=== PATIENT | male | born 1970 | race Caucasian/White ===

== ENCOUNTER 2023-05-16 19:20 | Emergency (ER) | payer MEDICAID ==
[~2023-05-16] VITALS: Ht 170.2 cm; Wt 88.2 kg
[~2023-05-16 19:20] MED LIST: IBUP-1493 PO
[2023-05-16] MEDS ORDERED: FAMOTIDINE 20 MG/2 ML VIAL IVP ONE (21:15)
[2023-05-16] MEDS ORDERED: MethylPREDNISolone SOD SUCC 125 MG/2 ML VIAL IVP ONE (21:15)
[2023-05-16 21:24] VITALS: TEMP 98.7
[2023-05-16] MEDS ORDERED: SODIUM CHLORIDE 0.9% 1,000 ML IV ONE (22:15)
[2023-05-16 22:40] LABS: ANION GAP 8 mmol/L (8-16); CALCIUM, TOTAL 8.7 mg/dL (8.8-10.5); CARBON DIOXIDE 29 mmol/L (22-29); CHLORIDE 104 mmol/L (98-107); GLOMERULAR FILTR. RATE CALC > 60 mL/min (>60); GLUCOSE,RANDOM 145 mg/dL (70-110); POTASSIUM 3.9 mmol/L (3.5-5.1); SODIUM SERUM 141 mmol/L (136-145); UREA NITROGEN, BLOOD 12 mg/dL (7-18)
[2023-05-16 22:43] LABS: BASOPHILS % (AUTO) 0.2 % (0.0-2.0); EOSINOPHILS % (AUTO) 0.1 % (1.0-6.0); HEMATOCRIT 43.9 % (41-53); HEMOGLOBIN 14.5 g/dL (13.5-17.5); LYMPHOCYTES # (AUTO) 1.1 K/uL (1.0-4.8); LYMPHOCYTES % (AUTO) 8.1 % (22.0-44.0); MEAN CORPUSCULAR HEMOGLOBIN 27.3 pg (26.0-34.0); MEAN CORPUSCULAR HGB CONC 32.9 G/dL (31.0-37.0); MEAN CORPUSCULAR VOLUME 83 fL (80-100); MONOCYTES # (AUTO) 0.9 K/uL (0.1-1.0); MONOCYTES % (AUTO) 6.4 % (2.0-9.0); PLATELET COUNT (AUTO) 278 K/uL (150-450); RED CELL DISTRIBUTION WIDTH 13.8 % (11.5-14.5); WHITE BLOOD COUNT (AUTO) 14.1 K/uL (4.5-11.0)
[2023-05-16 22:46] LABS: ALANINE AMINOTRANSFERASE 31 U/L (12-78); ALBUMIN 3.4 g/dL (3.4-5.0); ALKALINE PHOSPHATASE 59 U/L (46-116); ASPARTATE AMINOTRANSFERASE 13 U/L (15-37); BILIRUBIN,TOTAL 0.3 mg/dL (0.1-1.0); TOTAL PROTEIN, SERUM 6.5 g/dL (6.4-8.2)
[2023-05-16 22:48] LABS: NEUTROPHILS % (AUTO) 85.2 % (40.0-70.0)
[2023-05-17] MEDS ORDERED: PRED-554 PO (01:00)
[2023-05-17] MEDS ORDERED: EPIN0.3P3 IM (01:05)
[2023-05-17 01:10] VITALS: BP 126/76; PULSE 83; RESP 16
== END 2023-05-17 01:07 | disposition home or self-care (01) ==
LOC: EMS 19:21
DX: T78.40XA Allergy, unspecified, initial encounter (principal); E11.9 Type 2 diabetes mellitus without complications; Z98.890 Other specified postprocedural states; X58.XXXA Exposure to other specified factors, initial encounter
CPT/HCPCS: 99284; 96374; 96361; 96375; 80053; 85025; 36415; J3490; J2930; J7030

== ENCOUNTER 2024-10-28 05:17 | Emergency (ER) | payer OTHER ==
[~2024-10-28] VITALS: Ht 165.1 cm; Wt 90.9 kg
[~2024-10-28 05:17] MED LIST changes: +EPIN0.3P3 IM; +PRED-554 PO
[2024-10-28 05:26] VITALS: BP 146/91; PULSE 74; RESP 16; TEMP 98.3; O2SAT 98
[2024-10-28] MEDS: PredniSONE 20 MG TABLET PO ONE (05:51)
[2024-10-28] MEDS ORDERED: EPIN0.3P3 IM (06:17)
[2024-10-28] MEDS ORDERED: METH4TAB3 PO (06:17)
[2024-10-28] MEDS ORDERED: FAMO20 PO (06:17)
[2024-10-28] MEDS ORDERED: DIPH25CA85 PO (06:17)
[2024-10-28] MEDS: DEXAMETHASONE SOD PHOS 4 MG/ML 5 ML VIAL IM ONE (06:22)
[2024-10-28] MEDS: FAMOTIDINE 20 MG TABLET PO ONE (06:22)
== END 2024-10-28 06:47 | disposition home or self-care (01) ==
LOC: EMS 05:17
DX: T78.40XA Allergy, unspecified, initial encounter (principal); E11.9 Type 2 diabetes mellitus without complications; Z79.52 Long term (current) use of systemic steroids; X58.XXXA Exposure to other specified factors, initial encounter
CPT/HCPCS: 99283; 96372; J1100; J7512

== ENCOUNTER 2025-01-19 00:40 | Emergency (ER) | payer OTHER ==
[~2025-01-19] VITALS: Ht 170.2 cm; Wt 90.9 kg
[~2025-01-19 00:40] MED LIST changes: +DIPH25CA85 PO; +FAMO20 PO; +METH4TAB3 PO
[2025-01-19 01:02] VITALS: BP 143/76; PULSE 92; RESP 18; TEMP 98.4; O2SAT 93
[2025-01-19 01:06] LABS: GLUCOMETER DEV NAME(LOC) ER.7; GLUCOSE,POINT OF CARE 268 MG/DL (70-110)
[2025-01-19] MEDS: DiphenhydrAMINE HCL 50 MG/ML VIAL IVP ONE (01:31)
[2025-01-19] MEDS: MethylPREDNISolone SOD SUCC 125 MG/2 ML VIAL IVP ONE (01:32)
[2025-01-19] MEDS ORDERED: DIPH50CA37 PO (04:02)
[2025-01-19] MEDS ORDERED: PRED-554 PO (04:02)
[2025-01-19] MEDS ORDERED: LORA10TA7 PO (04:02)
== END 2025-01-19 04:36 | disposition home or self-care (01) ==
LOC: EMS 00:40
DX: T78.40XA Allergy, unspecified, initial encounter (principal); R20.2 Paresthesia of skin; L50.9 Urticaria, unspecified; E11.65 Type 2 diabetes mellitus with hyperglycemia; Z91.013 Allergy to seafood; Z79.52 Long term (current) use of systemic steroids; X58.XXXA Exposure to other specified factors, initial encounter
CPT/HCPCS: 99284; 96374; 96375; 82962; J2919; J1200